=== PATIENT | female | born 1965 | race Caucasian/White ===

== ENCOUNTER 2016-05-25 11:59 | Outpatient (CLI) | payer MEDICARE, MEDICAID ==
[2014-12-28 20:14] VITALS: BP 140/85
== END 2016-05-25 12:05 ==
LOC: OUT 11:59
PROVIDERS: ATTEND Colon & Rectal Surgery
DX: C21.0 Malignant neoplasm of anus, unspecified (principal)
CPT/HCPCS: 99213; G0463

== ENCOUNTER 2016-09-05 08:56 | Outpatient (CLI) | payer MEDICARE, MEDICAID ==
[2014-12-28 20:14] VITALS: BP 140/85
[2016-09-05] MEDS ORDERED: HEPARIN SODIUM 500 UNIT/5 ML DISP.SYRIN IV ONE (09:30)
[2016-09-05] MEDS ORDERED: SALINE FLUSH 10 ML DISP.SYRIN IVF ONE (09:30)
[2016-09-05 10:31] LABS: eGFR (African) > 60; eGFR (Non-African) > 60
== END 2016-09-05 08:58 ==
LOC: LAB 08:56
PROVIDERS: ATTEND Family Medicine
DX: I10 Essential (primary) hypertension (principal)
CPT/HCPCS: 80048; J1642